=== PATIENT | male | born 1960 | race Caucasian/White ===

== ENCOUNTER → 2018-02-19 10:33 | Outpatient (CLI) | payer MEDICARE, SELFPAY ==
--- NOTE | 2018-02-19 11:02 | MR_ITS ---
MR head/brain wo con HISTORY: ITS.REASON: SLURRED SPEECH, DROOLING, CONFUSION, lightheadedness ORDERING PHYSICIAN: Aleena Hamilton PATIENT AGE: 58 years Comparison: None TECHNIQUE: Standard multiplanar multiecho sequences are performed without contrast. FINDINGS: No midline shift, mass effect, or intracranial hemorrhage is evident. Small area of restricted diffusion with increased T2 signal involves posterior aspect of the body of the caudate nucleus extending inferiorly into the posterior aspect of the putamen consistent with an area of acute lacunar infarction. This is slightly hypointense on the ADC images. In addition, there is a small area of increased diffusion and T2 signal in the right putamen superiorly which is very slightly hyperintense on the ADC images consistent with a subacute area of lacunar infarction. There are old bilateral lacunar infarctions also present along with perivascular dilated spaces. There is mild generalized atrophy. The cerebellopontine angles, cerebellum, and brainstem are unremarkable. Flow void artifact is present within the internal carotids and basilar artery as expected. The pituitary and optic chiasm are unremarkable. No cerebellar ectopia. A lobular soft tissue lesion is present in the left nasal canal posteriorly extending into the nasopharynx measuring 3 cm consistent with a polyp. There is mild mucosal thickening of the paranasal sinuses. IMPRESSION: 1. Acute lacunar infarction of the left basal ganglia. 2. Subacute/early chronic lacunar infarction of the right basal ganglia. 3. Old bilateral basal ganglia lacunar infarctions. 4. Left-sided nasal polyp with mild sinus inflammatory changes
== END ==
PROVIDERS: Family Provider Family Medicine; PCP Family Medicine; Visit Provider Family Medicine
DX: R47.81 Slurred speech (principal); R41.0 Disorientation, unspecified
CPT/HCPCS: 70551

== ENCOUNTER 2022-08-18 01:30 | Observation (INO) | payer MEDICARE, SELFPAY ==
[2022-08-18] VITALS (16 sets, daily range): BP systolic 89–125; BP diastolic 52–80; PULSE 65–102; RESP 18–24; TEMP 36.3–36.8; O2SAT 87–98; BMI 32.3; BMI 29.1; BMI 29.3
--- NOTE | 2022-08-18 01:21 | ECG_ITS ---
APPROVED REPORT Exam: Resting ECG HR:74 bpm ECG Measurements Heart Rate 74 AXES MN 136 P 62 QRSd 118 QRS -7 QT 385 T 71 QTc 412 Conclusion SINUS RHYTHM INDETERMINATE AXIS MODERATE INTRAVENTRICULAR CONDUCTION DELAY [110+ ms QRS DURATION] BORDERLINE ECG UNCONFIRMED REPORT Electronically signed by : Brian Lujan MD 08/18/2022 08:56:21
[2022-08-18 01:26] LABS: ABG Base Excess -2.8 mmol/L (-2.4-2.3); ABG HCO3 21.7 mmhg (22.0-26.0); ABG Oxygen Saturation 95 % (90-100); ABG PH 7.42 mmol/L (7.35-7.45); ABG PO2 69.8 mmhg (80-100); ABG TCO2 22.7 mmhg (23-27); Allen's Test Acceptable; Oxygen 3LPM %
[2022-08-18 01:27] LABS: Source Left Radial
--- NOTE | 2022-08-18 01:37 | XR_ITS ---
PROCEDURE INFORMATION: Exam: XR Chest Exam date and time: 08/18/2022 2:31 AM Age: 62 years old Clinical indication: Condition or disease; Lung condition and disease; Copd and hypoxia; Shortness of breath; Additional info: SOA, hypoxia, copd HX TECHNIQUE: Imaging protocol: Radiologic exam of the chest. Views: 1 view. COMPARISON: No relevant prior studies available. FINDINGS: Lungs: Patchy airspace opacity is noted in the right mid and lower lung. Clear left lung. Pleural spaces: No pleural effusion. No pneumothorax. Heart/Mediastinum: Cardiac silhouette is normal in size for technique. Bones/joints: Age appropriate. IMPRESSION: Patchy opacities in the right lung are compelling for pneumonia.
[2022-08-18 01:45] LABS: Coronavirus 19, PCR Not Detected (NotDetected); Influenza A, PCR Not Detected (NotDetected); Influenza B, PCR Not Detected (NotDetected)
[2022-08-18 01:52] LABS: Alanine Aminotransferase 17 U/L (12-78); Albumin Level 4.3 g/dl (3.5-5.0); Albumin/Globulin Ratio 1.4 (1.1-1.8); Alkaline Phosphatase 83 U/L (38-126); Anion Gap 7.4 mEq/L (5-15); Aspartate Amino Transferase 32 U/L (17-59); Blood Urea Nitrogen 12 mg/dl (9-20); Calcium 9.1 mg/dl (8.4-10.2); Carbon Dioxide 29 mmol/L (22.0-30.0); Chloride 104 mmol/L (98-107); Creatinine Clearance Estimated 98 mL/min (50-200); Estimated Glomerular Filt Rate 86 ml/min (>60); GFR (African American) 103 ML/MIN (>60); Glucose 124 mg/dl (74-100); Potassium 3.4 mmoL/L (3.5-5.1); Sodium 137 mmol/L (136-145); Total Protein,Serum 7.3 g/dl (6.3-8.2)
[2022-08-18 01:53] LABS: Lactic Acid 1.2 mmol/L (0.7-2.1)
[2022-08-18 01:54] LABS: Basophils # 0.3 K/mm3 (0-0.2); Basophils % 1.7 % (0.1-2.0); Eosinophils # 0.5 K/mm3 (0.0-0.4); Hematocrit 52.2 % (42.0-52.0); Hemoglobin 17.2 g/dL (14.1-18.0); Lymphocytes # 2.4 K/mm3 (0.7-4.5); Lymphocytes % 13.5 % (10-50); Mean Corpuscular HGB Conc 32.8 g/dL (31.8-35.4); Mean Corpuscular Hemoglobin 30.1 pg (27.0-31.2); Mean Corpuscular Volume 91.5 fl (80-94); Mean Platelet Volume 7.6 fl (7.4-10.4); Monocytes # 0.5 K/mm3 (0.1-1.0); Monocytes % 2.8 % (1.7-9.3); Neutrophils # 13.8 K/mm3 (1.8-7.8); Platelet Count 399 K/mm3 (142-424); Red Blood Count 5.71 M/mm3 (4.60-6.20); Red Cell Distribution Width 13.7 % (11.5-17.5); White Blood Count 17.4 K/mm3 (4.8-10.8)
[2022-08-18 01:57] LABS: C-Reactive Protein 5.1 mg/L (0-4)
--- NOTE | 2022-08-18 02:01 | HMH.EDSOB ---
Discharge Plan Disposition Chief Complaint: Shortness of Breath/Dyspnea Prescriptions Prescriptions: No Action losartan 50 mg tablet 50 mg PO DAILY Label Comments: TAKE 1 TABLET BY MOUTH ONCE DAILY fluticasone furoate-vilanterol [Breo Ellipta] 200-25 mcg/dose blister with device 1 ea INHALATION DAILY Discharge ED Provider: Michelle (ED)Jim Resp/SOB HPI General Chief Complaint: Shortness of Breath/Dyspnea Stated Complaint: SOA Time Seen by Provider: 08/18/22 02:01 Mode of Arrival: EMS Source of Information: Patient, Relative, EMS and Medical Record Limitations: No Limitations Description of Symptoms (Recalled from ER Triage Doc. by RN): Pt c/o SOB, sinus congestion, and productive cough that began yeserday am (08/17). States he was out of his Breo inhaler and was unable to pick it up yesterday. He did take 2 Sinus pills and took a nap, but after he woke up he really couldn't breathe . EMS gave 1 du-neb in route and transistioned from 100% NRB mask to 3L NC. Pt does not use home O2. History of Present Illness pt with sob and has hx of copd - does use tob and no o2 at home but has low sat at home and in ed - had chest pressure with sob skip - Complaint: shortness of breath and chest pain Onset (ago): hour(s) Severity: moderate Treatment prior to arrival: oxygen and bronchodilator Related Data Home oxygen amount: none Home Medications Medication Instructions Recorded Confirmed fluticasone furoate 200 1 ea inhalation DAILY COPD 08/18/22 08/18/22 mcg-vilanterol 25 mcg/dose inhalation powder (Breo Ellipta) losartan 50 mg tablet 50 mg PO DAILY High blood pressure 08/18/22 08/18/22 Allergies Allergy/AdvReac Type Severity Reaction Status Date / Time No Known Allergies Allergy Verified 08/18/22 01:12 [facility] Disclaimer: The information contained in this section may have been updated after the patient was seen, as this information can be updated by other users. Medical History (Updated 08/18/22 @ 02:29 by Libertad Velazco RN) Asthma COPD (chronic obstructive pulmonary disease) TIA (transient ischemic attack) Surgical History (Updated 08/18/22 @ 02:32 by Libertad Velazco RN) H/O cardiac catheterization Social History Smoking Status: Current every day smoker alcohol intake: never current occupational status: employed Travel in the last 8 weeks: None ROS Obtained: Yes All systems reviewed & no additional complaints except as documented Physical Exam General General appearance: alert Head Head exam: normocephalic Eye Eye exam: Present PERRL and EOMI ENT ENT exam: Present mucous membranes dry Neck Neck exam: Present trachea midline Respiratory Respiratory exam: Present wheezes; Absent respiratory distress Cardiovascular Cardiovascular exam: Present regular rate and systolic murmur Abdominal Exam Abdominal exam: Present soft Extremities Exam Extremities exam: Absent calf tenderness Neurological Exam Neurological exam: Present alert and CN II-XII intact Skin Skin exam: Absent rash Medical Decision Making Medical Records Medical records reviewed: Yes I reviewed the patient's medical records. Brayan Inquiry Pt receiving controlled substance: No Vital Signs: 08/18/22 01:30 08/18/22 02:30 Temperature 98.2 F Temperature Source Oral Pulse Rate 89 Pulse Rate [Right] 102 H Respiratory Rate 24 22 Blood Pressure 98/75 L Blood Pressure [Right Arm] 125/52 L Blood Pressure Mean 82 Blood Pressure Mean [Right Arm] 76 Blood Pressure Source [Right Arm] Automatic Cuff 02 Sat by Pulse Oximetry 87 L 97 Oxygen Delivery Method Room Air Lab Data Lab results reviewed: Yes I reviewed the patient's lab results. Lab Results 08/18/22 01:23: Specimen Source Left radial, O2 % 3lpm, ABG pH 7.42, ABG pCO2 34.0 L, ABG pO2 69.8 L, ABG HCO3 21.7 L, ABG Total CO2 22.7 L, ABG O2 Saturation 95, ABG Base Excess -2.8 L, Isaac Test Acceptable 08/18/22 01:2
[2022-08-18 02:07] LABS: MANUAL DIFFERENTIAL MANUAL DIFFERENTIAL (MANUAL DIFF); NT Pro Brain Natriuretic Pep. 40.1 pg/mL (0-125)
[2022-08-18 02:11] LABS: Procalcitonin 0.056 ng/mL (0.0-2.0)
[2022-08-18 02:12] LABS: Troponin I < 0.01 ng/ml (0.00-0.034)
--- NOTE | 2022-08-18 02:38 | PC.NURSE ---
Hospitalist at bedside
[2022-08-18 02:49] LABS: Erythrocyte Sedimentation Rate 2 mm/hr (0-20)
[2022-08-18 02:57] LABS: Eosinophils % 2 % (0-3); Lymphocytes % 16 % (10-50); Monocytes % 3 % (2-9); Neutrophils % 78 % (42-76); Platelet Estimate Normal; RBC Morphology Normal; Total Cells Counted 100
--- NOTE | 2022-08-18 03:06 | PC.NURSE ---
lab called to check on labs admission orders (CBC timing), called Hospitalist to clarify this and Beronica states it is supposed to be 0600 AM labs.
[2022-08-18 03:08] LABS: Ethyl Alcohol < 10 mg/dl (0-10)
--- NOTE | 2022-08-18 03:10 | EXP.HP ---
History of Present Illness *Admission Date: 08/18/22 *Reason for visit:: Chief complaint: Shortness of breath *History of present illness: This is a 62-year-old male with past medical history of COPD, chronic alcohol abuse, tobacco abuse who presents emergency department today with complaints of shortness of breath. He reports around noon yesterday he was became acutely short of breath with audible wheezing. He reports this shortness of breath worsened over the course of the evening. He was noted to be in the mid 80s on room air upon arrival to the emergency department. He does not wear O2 at home. He does admit to alcohol intake of 6-8 beers daily over the course of the last 20 years. He also admits to 3 packs a day of cigarette smoking. He does endorse use of his Breo inhaler and antihypertensive medicines but states he is not on any other medications. Emergency department work-up significant for moderate wheezing on arrival to the emergency department. He is requiring O2 at this time to maintain oxygen saturation greater than 85%. labs notable for leukocytosis with a white blood cell count of 17, ABG identified no CO2 retention but did identify hypoxemia. COVID swab negative. His respiratory PCR panel identified rhinovirus. Influenza was negative. He received Solu-Medrol and DuoNeb in the emergency department and will be admitted to the hospital service for further evaluation management. [facility] Medical History (Updated 08/18/22 @ 07:25 by Gal Cortez MD) Alcohol use disorder COPD (chronic obstructive pulmonary disease) TIA (transient ischemic attack) Tobacco dependence Surgical History (Updated 08/18/22 @ 02:32 by Libertad Velazco RN) H/O cardiac catheterization Social History (Updated 08/18/22 @ 04:12 by Micheline Bautista RN) Smoking Status: Current every day smoker alcohol intake: current current occupational status: employed Travel in the last 8 weeks: None Review of Systems Review of Systems Review of systems:: pertinent systems reviewed and negative unless documented below Constitutional Constitutional: Reports fever(s) *Respiratory Respiratory: Reports chest congestion, Reports cough, Reports excessive phlegm production and Reports wheezing Allergic/Immunologic Allergic/Immunologic: Reports wheezing Meds Home Medications and Allergies Home Medications Medication Instructions Recorded Confirmed Type fluticasone furoate 200 1 ea inhalation DAILY COPD 02/17/23 02/17/23 History mcg-vilanterol 25 mcg/dose inhalation powder (Breo Ellipta) losartan 50 mg tablet 50 mg PO DAILY High blood pressure 08/18/22 08/18/22 History New Prescriptions to Start Prescriptions: Allergies Allergy/AdvReac Type Severity Reaction Status Date / Time No Known Allergies Allergy Verified 08/18/22 01:12 Exam Data for Last 24 hours Vital signs and Labs for Last 24 Hours: Temp Pulse Resp BP Pulse Ox 98.2 F 89 22 98/75 L 97 08/18/22 01:30 08/18/22 02:30 08/18/22 02:30 08/18/22 02:30 08/18/22 02:30 Laboratory Results - last 24 hr 08/18/22 01:23: Specimen Source Left radial, O2 % 3lpm, ABG pH 7.42, ABG pCO2 34.0 L, ABG pO2 69.8 L, ABG HCO3 21.7 L, ABG Total CO2 22.7 L, ABG O2 Saturation 95, ABG Base Excess -2.8 L, Isaac Test Acceptable 08/18/22 01:23: WBC 17.4 H, RBC 5.71, Hgb 17.2, Hct 52.2 H, MCV 91.5, MCH 30.1, MCHC 32.8, RDW 13.7, Plt Count 399, MPV 7.6, Neut % (Auto) 79.0, Lymph % (Auto) 13.5, [place] % (Auto) 2.8, Eos % (Auto) 3.0, Baso % (Auto) 1.7, Neut # (Auto) 13.8 H, Lymph # (Auto) 2.4, [place] # (Auto) 0.5, Eos # (Auto) 0.5 H, Baso # (Auto) 0.3 H, Total Counted 100, Neutrophils % (Manual) 78 H, Lymphocytes % (Manual) 16, Monocytes % (Manual) 3, Eosinophils % (Manual) 2, Basophils % (Manual) 1.0, Platelet Estimate Normal, RBC Morphology Normal, ESR 2 08/18/22 01:23: Sodium 137, Potassium 3.4 L, Chloride 104, Carbon Dioxide 29, Anion Gap 7.4, BUN 12, Creatinine 0.90, Estimated C
--- NOTE | 2022-08-18 03:13 | PC.NURSE ---
called report to Andie TIDWELL on 2nd floor
[2022-08-18 03:19] LABS: Adenovirus,PCR Not Detected (NotDetected); Bordetella Pertussis Not Detected (NotDetected); Chlamydophila Pneumoniae, PCR Not Detected (NotDetected); Coronavirus 19, PCR Not Detected (NotDetected); Coronavirus 229E Not Detected (NotDetected); Coronavirus NL63 Not Detected (NotDetected); Coronavirus OC43 Not Detected (NotDetected); Coronovirus HKU1,PCR Not Detected (NotDetected); Human Metapneumovirus Not Detected (NotDetected); Influenza A, PCR Not Detected (NotDetected); Influenza AH1, 2009 Not Detected (NotDetected); Influenza AH1, PCR Not Detected (NotDetected); Influenza AH3,PCR Not Detected (NotDetected); Influenza B, PCR Not Detected (NotDetected); Mycoplasma Pneumoniae, PCR Not Detected (NotDetected); Parainfluenza 1, PCR Not Detected (NotDetected); Parainfluenza 2, PCR Not Detected (NotDetected); Parainfluenza 3, PCR Not Detected (NotDetected); Parainfluenza 4, PCR Not Detected (NotDetected); Respiratory Syncytial Virus Not Detected (NotDetected)
--- NOTE | 2022-08-18 03:38 | PC.NURSE ---
Pt arrived to floor via stretcher @ [id number].
[2022-08-18 04:49] LABS: Rhinovirus/Enterovirus Detected (NotDetected)
[2022-08-18 06:04] LABS: Basophils # 0.1 K/mm3 (0-0.2); Basophils % 0.3 % (0.1-2.0); Eosinophils # 0.1 K/mm3 (0.0-0.4); Eosinophils % 0.5 % (0.1-12.0); Hemoglobin 16.4 g/dL (14.1-18.0); Lymphocytes # 0.5 K/mm3 (0.7-4.5); Lymphocytes % 2.8 % (10-50); Mean Corpuscular HGB Conc 31.6 g/dL (31.8-35.4); Mean Corpuscular Hemoglobin 29.5 pg (27.0-31.2); Mean Corpuscular Volume 93.3 fl (80-94); Mean Platelet Volume 7.4 fl (7.4-10.4); Monocytes # 0.1 K/mm3 (0.1-1.0); Monocytes % 0.8 % (1.7-9.3); Neutrophils # 15.1 K/mm3 (1.8-7.8); Neutrophils % 95.5 % (37.0-80.0); Platelet Count 357 K/mm3 (142-424); Red Blood Count 5.57 M/mm3 (4.60-6.20); Red Cell Distribution Width 13.7 % (11.5-17.5); White Blood Count 15.9 K/mm3 (4.8-10.8)
[2022-08-18 06:28] LABS: Troponin I < 0.01 ng/ml (0.00-0.034)
[2022-08-18 06:35] LABS: Chloride 108 mmol/L (98-107); Sodium 139 mmol/L (136-145)
[2022-08-18 06:37] LABS: Blood Urea Nitrogen 13 mg/dl (9-20); Creatinine Clearance Estimated 89 mL/min (50-200); Estimated Glomerular Filt Rate 98 ml/min (>60); GFR (African American) 119 ML/MIN (>60)
[2022-08-18 06:38] LABS: Calcium 8.4 mg/dl (8.4-10.2); Carbon Dioxide 24 mmol/L (22.0-30.0); Cholesterol 152 mg/dl (140-200); Glucose 234 mg/dl (74-100); Phosphorous 2.5 mg/dl (2.5-4.5); Triglycerides 51 mg/dl (30-150); VLDL Cholesterol 10 mg/dL (0-40)
[2022-08-18 06:39] LABS: Chol/HDL Ratio 3.1 (1-3.5); HDL Cholesterol 49 mg/dl (40-60); Magnesium 1.9 mg/dl (1.6-2.3)
[2022-08-18 06:49] LABS: Direct LDL Cholesterol 87.59 mg/dL (100-129)
--- NOTE | 2022-08-18 07:23 | HMH.PHAINT1 ---
Pharmacy Intervention Comments: verified home med list using list from outpatient pharmacy
[2022-08-18 08:45] LABS: Troponin I < 0.01 ng/ml (0.00-0.034)
[2022-08-18 08:53] LABS: Microscopic, Urine URINE MICROSCOPIC (MICROSCOPIC)
[2022-08-18 08:55] LABS: Appearance,Urine CLEAR (Clear); Blood, Urine TRACE-I (Negative); Color,Urine YELLOW (Yellow); Glucose,Urine (UA) Negative (Negative); Ketones,Urine TRACE (Negative); Leukocyte Esterase,Urine 1+ (Negative); Nitrate,Urine POSITIVE (Negative); PH,Urine 5.5 (5.0-8.5); Protein,Urine Negative (Negative); Urobilinogen,Urine 0.2 EU/dl (0.2)
[2022-08-18 08:59] LABS: Bilirubin,Urine Negative (Negative)
--- NOTE | 2022-08-18 09:06 | PC.NURSE ---
tech note; notified nurse of low blood pressure for 0800 vital signs.
[2022-08-18 09:13] LABS: Bacteria,Urine 1+ /lpf
--- NOTE | 2022-08-18 12:47 | CT_ITS ---
FINAL REPORT TECHNIQUE: Thin section axial images were obtained from the lung apices through the upper abdomen without contrast. This study was performed with techniques to keep radiation doses as low as reasonably achievable (ALARA). Individualized dose reduction techniques using automated exposure control or adjustment of mA and/or kV according to the patient's size were employed. CLINICAL HISTORY: questionable pneumonia with COPD FINDINGS: There is no mediastinal, hilar, or axillary lymphadenopathy. There is no pleural or pericardial effusion. There is left greater than right lower lobe atelectasis. There is evidence of old granulomatous disease. Limited, unenhanced evaluation of the upper abdomen is without acute abnormality. There is no acute osseous abnormality. IMPRESSION: No acute intrathoracic abnormality. Lower lobe atelectasis. Reviewed, Interpreted and Dictated by Hailey Godoy MD Transcribed by Priscila Restrepo Authenticated and [facility]
--- NOTE | 2022-08-18 20:02 | PC.NURSE ---
Pt. states he will call out if he needs to use the restroom and not his urinal.
[2022-08-19] VITALS (11 sets, daily range): BP systolic 99–138; BP diastolic 72–94; PULSE 60–110; RESP 20–24; TEMP 36.4–37.1; O2SAT 92–100; BMI 29.4; BMI 29.5
--- NOTE | 2022-08-19 06:05 | PC.NURSE ---
No acute changes noted during the night.
[2022-08-19 09:21] LABS: Basophils # 0.1 K/mm3 (0-0.2); Basophils % 0.3 % (0.1-2.0); Eosinophils # 0.1 K/mm3 (0.0-0.4); Eosinophils % 0.6 % (0.1-12.0); Hematocrit 51.3 % (42.0-52.0); Hemoglobin 16.3 g/dL (14.1-18.0); Lymphocytes # 1.1 K/mm3 (0.7-4.5); Lymphocytes % 4.9 % (10-50); Mean Corpuscular HGB Conc 31.9 g/dL (31.8-35.4); Mean Corpuscular Hemoglobin 29.6 pg (27.0-31.2); Mean Corpuscular Volume 92.9 fl (80-94); Mean Platelet Volume 7.7 fl (7.4-10.4); Monocytes # 0.7 K/mm3 (0.1-1.0); Neutrophils % 91.3 % (37.0-80.0); Platelet Count 363 K/mm3 (142-424); Red Blood Count 5.52 M/mm3 (4.60-6.20); Red Cell Distribution Width 13.6 % (11.5-17.5)
[2022-08-19 09:28] LABS: MANUAL DIFFERENTIAL MANUAL DIFFERENTIAL (MANUAL DIFF)
[2022-08-19 09:29] LABS: Chloride 110 mmol/L (98-107)
[2022-08-19 09:30] LABS: Sodium 142 mmol/L (136-145)
[2022-08-19 09:33] LABS: Blood Urea Nitrogen 20 mg/dl (9-20); Carbon Dioxide 25 mmol/L (22.0-30.0); Creatinine Clearance Estimated 90 mL/min (50-200); Estimated Glomerular Filt Rate 98 ml/min (>60); GFR (African American) 119 ML/MIN (>60); Glucose 158 mg/dl (74-100)
[2022-08-19 09:56] LABS: Lymphocytes % 8 % (10-50); Monocytes % 2 % (2-9); Neutrophils % 90 % (42-76); RBC Morphology Normal; Total Cells Counted 100
[2022-08-19 09:57] LABS: Platelet Estimate Normal
[2022-08-19 10:04] LABS: Procalcitonin 0.067 ng/mL (0.0-2.0)
--- NOTE | 2022-08-19 12:12 | PC.NURSE ---
tech note; notified nurse of high blood pressure for 1200 vital signs.
--- NOTE | 2022-08-19 12:35 | EXP.ACUTE.PN ---
Subjective *Date: 08/19/22 *Time: 12:35 Interval history: Patient states he is breathing little better today, cough is more productive of clear sputum. Seeing more movement of sputum with breathing treatments. Still requiring 2 L nasal cannula oxygen. No nausea or vomiting overnight. Denies any chest pain. Hemodynamically stable. Medical Exam Vital signs and Labs for Last 24 Hours: Vital Signs Temp Pulse Pulse Resp BP Pulse Ox 08/19/22 12:00 98.0 F 94 H 22 128/94 H 95 08/19/22 08:00 83 08/19/22 08:00 97.5 F L 65 22 115/77 95 08/19/22 06:00 72 08/19/22 06:00 74 08/19/22 06:00 92 L 08/19/22 04:00 97.7 F 79 22 111/78 93 L 08/19/22 04:00 60 08/19/22 00:00 90 08/18/22 23:36 97.4 F L 87 22 109/80 L 96 08/18/22 20:00 100 H 08/18/22 23:11 84 08/18/22 23:11 85 08/18/22 20:00 98.1 F 77 22 120/74 95 08/18/22 19:56 95 08/18/22 18:12 94 H 08/18/22 18:12 94 H 08/18/22 18:12 95 08/18/22 16:00 97.8 F 92 H 20 104/74 L 95 08/18/22 16:28 98 H Intake and Output 08/18/22 08/19/22 08/19/22 23:59 07:59 15:59 Intake Total 720 / 1440 120 / 120 Output Total 450 / 750 150 / 400 250 / 400 Balance 270 / 690 -150 / -280 -130 / -280 Intake: Intake, Oral Amount 720 / 1440 120 / 120 Output: Output, Urine Amount 450 / 750 150 / 400 250 / 400 Other: Weight 83.098 kg 83.206 kg Patient Weight 08/19/22 23:59 Weight 83.206 kg Laboratory Results - last 24 hr 08/18/22 01:37: Urine Color Yellow, Urine Appearance Clear, Urine pH 5.5, Ur Specific [place] 1.020, Urine Protein Negative, Urine Glucose (UA) Negative, Urine Ketones Trace, Urine Blood Trace-i, Urine Nitrate Positive, Urine Bilirubin Negative, Urine Urobilinogen 0.2, Ur Leukocyte Esterase 1+ A, Urine RBC 3-5, Urine WBC 5-10, Ur Squamous Epith Cells 3-5, Urine Bacteria 1+ 08/19/22 09:05: WBC 23.0 H* D, RBC 5.52, Hgb 16.3, Hct 51.3, MCV 92.9, MCH 29.6, MCHC 31.9, RDW 13.6, Plt Count 363, MPV 7.7, Neut % (Auto) 91.3 H, Lymph % (Auto) 4.9 L, [place] % (Auto) 3.0, Eos % (Auto) 0.6, Baso % (Auto) 0.3, Neut # (Auto) 21.0 H, Lymph # (Auto) 1.1, [place] # (Auto) 0.7, Eos # (Auto) 0.1, Baso # (Auto) 0.1, Total Counted 100, Neutrophils % (Manual) 90 H, Lymphocytes % (Manual) 8 L, Monocytes % (Manual) 2, Platelet Estimate Normal, RBC Morphology Normal 08/19/22 09:05: Sodium 142, Potassium 4.0, Chloride 110 H, Carbon Dioxide 25, Anion Gap 11.0, BUN 20 D, Creatinine 0.80, Estimated Creat Clear 90, Estimated GFR 98, Est GFR ( Amer) 119, Glucose 158 H, Calcium 9.0, Procalcitonin 0.067 I & O for Labs for Last 24 Hours: Intake & Output 08/16/22 08/17/22 08/18/22 08/19/22 23:59 23:59 23:59 23:59 Intake Total 1440 / 1440 120 / 120 Output Total 750 / 750 400 / 400 Balance 690 / 690 -280 / -280 Weight 82.9 kg 83.206 kg Microbiology Reports for the Last 24 Hours: Microbiology 08/18/22 11:30 Sputum - Expectorated Sputum Gram Stain - Final 08/18/22 08:39 Urine,Clean Catch Urine Culture - Preliminary Gram Negative Rods Constitutional: Present no acute distress, chronically ill appearing and cooperative Head: Present atraumatic and normocephalic ENT: Present normal exam Neck: Present normal inspection Respiratory: Present accessory muscle use, rhonchi, wheezes, crackles and diminished air movement Cardiac: Present Reg Rate and Rhythm GI: Present normal bowel sounds; Absent tenderness Extremities: Present normal inspection and full ROM Skin: Present intact; Absent erythema Neuro: Present Cranial Nerve 2-12 Intact, Grossly Intact, alert, awake, oriented x 3 and moves all extremities Assessment and Plan *Assessment and plan (1) Pneumonia: Status: Acute Qualifiers: Pneumonia type: due to unspecified organism Category: Medical Code(s): J18.9 - Pneumonia, unspecified organis
--- NOTE | 2022-08-19 17:53 | PC.NURSE ---
pt on o2 2l, tolerating well, pt has audible ins and exp wheezing/rhonchi. pt got up to chair for around 3 hrs today and took a bath. pt back in bed with no c/o at this time. cb within reach.
[2022-08-20] VITALS: PULSE 111
[2022-08-20 00:19] VITALS: PULSE 79; PULSE 80
[2022-08-20 04:00] VITALS: BP 92/67; PULSE 102; PULSE 110; RESP 22; TEMP 36.7; O2SAT 97; BMI 29.5
--- NOTE | 2022-08-20 04:36 | PC.NURSE ---
Pt. is on o2 2L NC and up with assist times one. He asked for something to help him sleep last night and got some melatonin. Said it didn't really help too much.
[2022-08-20 06:17] VITALS: PULSE 93; PULSE 95; O2SAT 96
--- NOTE | 2022-08-20 07:20 | EXP.DC.SUM ---
General Admission date:: 08/18/22 Discharge date: 08/20/22 HPI HPI HPI: This is a 62-year-old male with past medical history of COPD, chronic alcohol abuse, tobacco abuse who presents emergency department today with complaints of shortness of breath. He reports around noon yesterday he was became acutely short of breath with audible wheezing. He reports this shortness of breath worsened over the course of the evening. He was noted to be in the mid 80s on room air upon arrival to the emergency department. He does not wear O2 at home. He does admit to alcohol intake of 6-8 beers daily over the course of the last 20 years. He also admits to 3 packs a day of cigarette smoking. He does endorse use of his Breo inhaler and antihypertensive medicines but states he is not on any other medications. Emergency department work-up significant for moderate wheezing on arrival to the emergency department. He is requiring O2 at this time to maintain oxygen saturation greater than 85%. labs notable for leukocytosis with a white blood cell count of 17, ABG identified no CO2 retention but did identify hypoxemia. COVID swab negative. His respiratory PCR panel identified rhinovirus. Influenza was negative. He received Solu-Medrol and DuoNeb in the emergency department and will be admitted to the hospital service for further evaluation management. Hospital Course Hospital Course Hospital Course: The patient is a 62-year-old male with chronic history of tobacco dependence and alcohol use disorder.? In the ED he was found to be hypoxic and required oxygen supplementation.? Admitted for his acute on chronic hypoxic respiratory failure.? Able to wean oxygen during admission. Room air saturation of 90 to 93% on day of discharge. Problems addressed are as follows: Sepsis, present on admission (tachycardia, elevated white cell count, suspected source from respiratory versus UTI) Pneumonia Acute on chronic hypoxemic respiratory failure Urinary tract infection Admitted for sepsis and pneumonia. Respiratory panel showed positive for rhinovirus. Urine culture however grew gram-negative rods. Transitioned to Levaquin during admission to treat UTI. Symptoms defervesced. Plan to complete 7-day course of levofloxacin orally. Initiated on prednisone 40 mg for COPD exacerbation secondary to viral source. Complete 5 days total. Continue breathing treatments every 6 hours. Transition to Combivent as patient does not have a nebulizer at home. No oxygen requirement at discharge. Stable for discharge home. Continue aggressive pulmonary toilet. Alcohol use disorder moderate dependence Alcohol consumption 6-8 beers a day between 3 PM and 6 PM in the evening. No withdrawal symptoms during admission. Treated with scheduled oxazepam and gabapentin. Discontinue at discharge. Received multivitamin therapy, folic acid, thiamine replacement. Discussed benefits of cessation. Recommend further discussion as an outpatient for counseling and possible abstinence/cessation Hypertension Stable during admission, continue losartan at discharge. Tobacco dependence Tobacco cessation education, Nicotine replacement therapy Medically stable for discharge home. Significant improvement in symptoms. Stable on room air and tolerating oral intake along with oral antibiotics. Exam Data for Last 24 hours Vital signs and Labs for Last 24 Hours: Temp Pulse Resp BP Pulse Ox FiO2 98.1 F 95 H 22 92/67 L 96 28 08/20/22 04:00 08/20/22 06:17 08/20/22 04:00 08/20/22 04:00 08/20/22 06:17 08/19/22 18:54 Laboratory Results - last 24 hr 08/19/22 09:05: WBC 23.0 H* D, RBC 5.52, Hgb 16.3, Hct 51.3, MCV 92.9, MCH 29.6, MCHC 31.9, RDW 13.6, Plt Count 363, MPV 7.7, Neut % (Auto) 91.3 H, Lymph % (Auto) 4.9 L, [place] % (Auto) 3.0, Eos % (Auto) 0.6, Baso % (Auto) 0.3, Neut # (Auto) 21.0 H, Lymph # (Auto) 1.1, [place] # (Auto) 0.7, Eos # (Auto) 0.1, Baso # (Auto) 0.1, Total Counted 100, N
[2022-08-20 08:00] VITALS: BP 132/81; PULSE 102; PULSE 110; RESP 22; TEMP 36.8; O2SAT 92
[2022-08-20 08:07] VITALS: O2SAT 90
[2022-08-20 08:55] LABS: Basophils # 0.1 K/mm3 (0-0.2); Basophils % 0.6 % (0.1-2.0); Eosinophils # 0.2 K/mm3 (0.0-0.4); Eosinophils % 0.9 % (0.1-12.0); Hematocrit 48.4 % (42.0-52.0); Hemoglobin 15.7 g/dL (14.1-18.0); Lymphocytes # 2.1 K/mm3 (0.7-4.5); Lymphocytes % 11.6 % (10-50); Mean Corpuscular HGB Conc 32.5 g/dL (31.8-35.4); Mean Corpuscular Hemoglobin 29.9 pg (27.0-31.2); Mean Corpuscular Volume 92.1 fl (80-94); Mean Platelet Volume 7.5 fl (7.4-10.4); Monocytes # 0.7 K/mm3 (0.1-1.0); Monocytes % 3.9 % (1.7-9.3); Neutrophils # 15.1 K/mm3 (1.8-7.8); Platelet Count 363 K/mm3 (142-424); Red Blood Count 5.25 M/mm3 (4.60-6.20); Red Cell Distribution Width 13.7 % (11.5-17.5); White Blood Count 18.1 K/mm3 (4.8-10.8)
[2022-08-20 09:04] LABS: Chloride 111 mmol/L (98-107); MANUAL DIFFERENTIAL MANUAL DIFFERENTIAL (MANUAL DIFF); Potassium 3.7 mmoL/L (3.5-5.1); Sodium 142 mmol/L (136-145)
[2022-08-20 09:06] LABS: Blood Urea Nitrogen 24 mg/dl (9-20); Creatinine Clearance Estimated 90 mL/min (50-200); Estimated Glomerular Filt Rate 76 ml/min (>60); GFR (African American) 92 ML/MIN (>60)
[2022-08-20 09:07] LABS: Alanine Aminotransferase 15 U/L (12-78); Albumin Level 3.6 g/dl (3.5-5.0); Albumin/Globulin Ratio 1.3 (1.1-1.8); Alkaline Phosphatase 59 U/L (38-126); Anion Gap 7.7 mEq/L (5-15); Aspartate Amino Transferase 26 U/L (17-59); Bilirubin,Total 0.3 mg/dl (0.2-1.3); Calcium 8.8 mg/dl (8.4-10.2); Carbon Dioxide 27 mmol/L (22.0-30.0); Globulin 2.7 g/dL (1.3-3.2); Glucose 95 mg/dl (74-100); Total Protein,Serum 6.3 g/dl (6.3-8.2)
--- NOTE | 2022-08-20 09:20 | PC.NURSE ---
dc instructions went over with pt and . waiting on pts ride.
[2022-08-20 10:46] LABS: Lymphocytes % 13 % (10-50); Monocytes % 4 % (2-9); Neutrophils % 83 % (42-76); Platelet Estimate Normal; RBC Morphology Normal; Total Cells Counted 100
--- NOTE | 2022-08-22 13:54 | CARE MANAGER ---
Attempted to contact patient x2 related to hospital discharge. BENTLEY left. DIANN Ramírez
== END 2022-08-20 10:30 | disposition home or self-care (01) ==
LOC: ER 01:37 → 2ND 08:06
PROVIDERS: Internal Medicine Adolescent Medicine; Nurse Practitioner Acute Care; Admitting Provider Family Medicine; Emergency Provider Emergency Medicine; PCP Family Medicine; Visit Provider Family Medicine
DX: J18.9 Pneumonia, unspecified organism (principal); I10 Essential (primary) hypertension; F10.10 Alcohol abuse, uncomplicated; F17.210 Nicotine dependence, cigarettes, uncomplicated; Z79.899 Other long term (current) drug therapy; J96.11 Chronic respiratory failure with hypoxia; R06.9 Unspecified abnormalities of breathing; Z20.822 Contact with and (suspected) exposure to COVID-19
CPT/HCPCS: G0378; 36415; 71045; 71250; 80048; 80053; 80061; 81001; 82803; 83605; 83735; 83880; 84100; 84145; 84484; 85007; 85025; 85651; 86140; 87040; 87070; 87086; 87088; 87186; 87205; 87581; 87632; 87798; 93005; 94640; 99285; C9803; U0003; U0005

== ENCOUNTER 2025-03-25 21:43 | Emergency (ER) | payer MEDICARE, SELFPAY ==
--- NOTE | 2025-03-25 21:21 | CT_ITS ---
PROCEDURE INFORMATION: Exam: CTA Neck With Contrast Exam date and time: 03/25/2025 9:36 PM Age: 65 years old Clinical indication: Stroke-like symptoms; Altered mental status/memory loss; Additional info: Possible stroke TECHNIQUE: Imaging protocol: Computed tomographic angiography of the neck with contrast. Exam focused on the cervical segments of the vasculature. 3D rendering (Not supervised by radiologist): MIP and/or 3D reconstructed images were created by the technologist. Radiation optimization: All CT scans at this facility use at least one of these dose optimization techniques: automated exposure control; mA and/or kV adjustment per patient size (includes targeted exams where dose is matched to clinical indication); or iterative reconstruction. Contrast material: ISOVUE; Contrast volume: 80 ml; Contrast route: INTRAVENOUS (IV); COMPARISON: CT HEAD/BRAIN WO CON 03/25/2025 9:34 PM FINDINGS: Limitations: The study is mildly motion degraded. Right common carotid artery: The right common carotid artery is widely patent. No stenosis. Right internal carotid artery: Atherosclerotic changes proximal right internal carotid artery are seen without significant stenosis. Right external carotid artery: Right external carotid artery has no visible occlusion. Left common carotid artery: The left common carotid artery is widely patent. No stenosis. Left internal carotid artery: Atherosclerotic changes proximal left internal carotid artery are seen without significant stenosis. Left external carotid artery: Left external carotid artery has no visible occlusion. Right vertebral artery: Right vertebral artery is patent. No significant stenosis. No evidence of dissection. Left vertebral artery: Left vertebral artery is patent. No significant stenosis. No evidence of dissection. Teeth: Dental disease. Soft tissues: Soft tissues are unremarkable as visualized. Bones/joints: Degenerative bony changes. Lungs: Visualized portions of the lung apices are unremarkable. Other findings: Visualized mediastinal vasculature patent. There is transient retropharyngeal course of both internal carotid artery is present bilaterally. IMPRESSION: No occlusion or significant stenosis. REFERENCES: NASCET CRITERIA. The degree of stenosis in the cervical segment of the internal carotid artery is based on NASCET criteria. Normal is no stenosis. Mild is less than 50% stenosis. Moderate is 50-69% stenosis. Severe is 70% to 99% stenosis. Total occlusion is no detectable patent lumen.
--- NOTE | 2025-03-25 21:21 | CT_ITS ---
PROCEDURE INFORMATION: Exam: CTA Head With Contrast, Arteriography Exam date and time: 03/25/2025 9:36 PM Age: 65 years old Clinical indication: Stroke-like symptoms; Altered mental status/memory loss; Additional info: Possible stroke TECHNIQUE: Imaging protocol: Computed tomographic angiography of the head with contrast. Exam focused on the arteries. Computed tomographic angiography of the head with contrast. Exam focused on the arteries. AI vessel analysis not performed. 3D rendering (Not supervised by radiologist): MIP and/or 3D reconstructed images were created by the technologist. Radiation optimization: All CT scans at this facility use at least one of these dose optimization techniques: automated exposure control; mA and/or kV adjustment per patient size (includes targeted exams where dose is matched to clinical indication); or iterative reconstruction. Contrast material: ISOVUE; Contrast volume: 80 ml; Contrast route: INTRAVENOUS (IV); COMPARISON: CT HEAD/BRAIN WO CON 03/25/2025 9:34 PM FINDINGS: ANTERIOR CIRCULATION: Right internal carotid artery: Atherosclerotic changes right internal carotid artery with mild stenosis. Right middle cerebral artery: Right middle cerebral artery is patent. No significant stenosis. No aneurysm. Right anterior cerebral artery: Right anterior cerebral artery is patent. No significant stenosis. No aneurysm. Anterior communicating artery: No anterior communicating artery aneurysm seen. Left internal carotid artery: Atherosclerotic changes left internal carotid artery with mild stenosis. Left middle cerebral artery: Left middle cerebral artery is patent. No significant stenosis. No aneurysm. Left anterior cerebral artery: Left anterior cerebral artery is patent. No significant stenosis. No aneurysm. POSTERIOR CIRCULATION: Right vertebral artery: Right vertebral artery is patent. No significant stenosis. No aneurysm. Left vertebral artery: Left vertebral artery is patent. No significant stenosis. No aneurysm. Basilar artery: The basilar artery is patent. No significant stenosis. No aneurysm. Right posterior cerebral artery: There is mild stenosis of the right [employer] J[employer]NEY[employer] proximally. No occlusion. Left posterior cerebral artery: Left posterior cerebral artery is patent. No significant stenosis. No aneurysm. Veins: Visualized dural venous sinuses grossly patent on this study optimized for arterial assessment. Brain: There is no definite mass, mass effect, or midline shift present. No definite vascular malformation identified. Cerebral ventricles: No significant ventriculomegaly. Bones/joints: No acute osseous abnormality. Soft tissues: Soft tissues are unremarkable as visualized. IMPRESSION: No acute large vessel occlusion identified.
--- NOTE | 2025-03-25 21:21 | CT_ITS ---
PROCEDURE INFORMATION: Exam: CT Head Without Contrast Exam date and time: 03/25/2025 9:34 PM Age: 65 years old Clinical indication: Stroke-like symptoms; Altered mental status/memory loss; Additional info: Possible stroke TECHNIQUE: Imaging protocol: Computed tomography of the head without contrast. Radiation optimization: All CT scans at this facility use at least one of these dose optimization techniques: automated exposure control; mA and/or kV adjustment per patient size (includes targeted exams where dose is matched to clinical indication); or iterative reconstruction. Other technique: STROKE PROTOCOL was implemented. COMPARISON: No relevant prior studies available. FINDINGS: Brain: Multiple bilateral chronic basal ganglia region lacunar type infarcts. No acute infarct. No hemorrhage. Involutional changes of the brain, commensurate with age. No midline shift. Cerebral ventricles: No significant ventriculomegaly. Paranasal sinuses: Scattered paranasal sinus mucosal thickening, without air-fluid level present. Mastoid air cells: Mastoid air cells are well-aerated. Orbital cavities: Visualized portions of the orbits are unremarkable. Bones: No acute osseous abnormality. Soft tissues: Soft tissues are unremarkable as visualized. IMPRESSION: No acute intracranial abnormality. ASSESSMENT: ASPECTS ([place] Stroke Program Early CT Score) is 10.
--- NOTE | 2025-03-25 21:21 | ECG_ITS ---
APPROVED REPORT Exam: Resting ECG HR:82 bpm ECG Measurements Heart Rate 82 AXES MS 162 P 59 QRSd 105 QRS 2 QT 396 T 66 QTc 435 Conclusion SINUS RHYTHM NORMAL ECG UNCONFIRMED REPORT Electronically signed by : CORNEL FOSTER, 03/27/2025 03:56:44
[2025-03-25] MEDS: 0.9 % SODIUM CHLORIDE 50 ML VIAL IV ×2 (21:33→22:28)
[2025-03-25] MEDS: IOPAMIDOL-370 (76%);100ML BOTTLE 80 ML IV ×2 (21:33→22:28)
[2025-03-25] MEDS: SODIUM CHLORIDE 0.9% 10ML SYR (RAD ONLY) 10 ML IV ×2 (21:33→22:28)
[2025-03-25 21:35] LABS: Hematocrit 49.5 % (42.0-52.0); Hemoglobin 16.2 g/dL (14.1-18.0); Immature Granulocytes % 0.5 %; Mean Corpuscular HGB Conc 32.7 g/dL (31.8-35.4); Mean Corpuscular Hemoglobin 29.2 pg (27.0-31.2); Mean Corpuscular Volume 89.2 fl (80-94); Nucleated Red Blood Cells % 0 %; Platelet Count 438 K/mm3 (142-424); Red Blood Count 5.55 M/mm3 (4.60-6.20); Red Cell Distribution Width-SD 42.5 fL; White Blood Count 15.1 K/mm3 (4.8-10.8)
[2025-03-25 21:43] LABS: Albumin Level 4.9 g/dl (3.5-5.0); Chloride 99 mmol/L (98-107); Potassium 4.4 mmoL/L (3.5-5.1); Sodium 136 mmol/L (136-145)
[2025-03-25 21:46] LABS: Alanine Aminotransferase 15 U/L (12-78); Albumin/Globulin Ratio 1.3 (1.1-1.8); Alkaline Phosphatase 75 U/L (38-126); Anion Gap 16.4 mEq/L (5-15); Aspartate Amino Transferase 39 U/L (17-59); Bilirubin,Total 1.1 mg/dl (0.2-1.3); Blood Urea Nitrogen 21 mg/dl (9-20); Calcium 9.5 mg/dl (8.4-10.2); Carbon Dioxide 25 mmol/L (22.0-30.0); Cholesterol 168 mg/dl (140-200); Creatinine,Serum 0.80 mg/dl (0.66-1.25); Estimated Glomerular Filt Rate 97 ml/min (>60); GFR (African American) 117 ML/MIN (>60); Globulin 3.7 g/dL (1.3-3.2); Glucose 107 mg/dl (74-100); HDL Cholesterol 65 mg/dl (40-60); Total Protein,Serum 8.6 g/dl (6.3-8.2); Triglycerides 85 mg/dl (30-150)
--- NOTE | 2025-03-25 21:49 | CT_ITS ---
PROCEDURE INFORMATION: Exam: CT Abdomen And Pelvis With Contrast Exam date and time: 03/25/2025 10:30 PM Age: 65 years old Clinical indication: Other: Abdominal pain and vomiting TECHNIQUE: Imaging protocol: Computed tomography of the abdomen and pelvis with contrast. 3D rendering (Not supervised by radiologist): MIP and/or 3D reconstructed images were created by the technologist. Radiation optimization: All CT scans at this facility use at least one of these dose optimization techniques: automated exposure control; mA and/or kV adjustment per patient size (includes targeted exams where dose is matched to clinical indication); or iterative reconstruction. Contrast material: ISOVUE; Contrast volume: 80 ml; Contrast route: IV; COMPARISON: CT CHEST WO CON 08/18/2022 12:59 PM FINDINGS: Lungs: Patchy regions of lower lobe atelectasis again present. Liver: No liver mass. Patent portal vasculature. Gallbladder and biliary ducts: The gallbladder is unremarkable. No biliary ductal dilatation. Pancreas: The pancreas is unremarkable. Spleen: The spleen is unremarkable. Adrenal glands: The adrenal glands are unremarkable. Kidneys and ureters: There are multiple right renal cysts largest in the posterior lower pole measures 2.1 cm. No hydronephrosis. Subcentimeter hypodensities left kidney too small to characterize likely cysts. 2.5 cm right peripelvic renal cysts. Stomach and bowel: The colon has scattered noninflamed diverticuli. There is wall thickening in the proximal/mid colon with fatty infiltration of the submucosa most likely chronic. There is also fatty infiltration and thickening in the terminal ileum. No bowel obstruction seen. Appendix: The appendix is normal as seen on coronal image 40. Intraperitoneal space: No free air. No significant ascites. Retroperitoneal space: Visualized retroperitoneal structures grossly negative with no obvious hematoma identified. Vasculature: The aorta has atherosclerosis present without aneurysm or visible dissection. The visualized IVC is unremarkable. The right femoral vein has a focal caliber change on series 4, image 117. Lymph nodes: No pathologic lymphadenopathy identified. Urinary bladder: There is contrast in the bladder from CTA earlier same day. The bladder has numerous diverticuli with trabeculated appearance. Reproductive: The prostate gland has central calcifications. Bones/joints: Degenerative bony changes. Soft tissues: Soft tissues are unremarkable as visualized. IMPRESSION: 1. Trabeculated bladder. Correlate for chronic cystitis versus outlet obstruction. 2. Focal caliber change in the right femoral vein suspicious for possible deep venous thrombus. A ultrasound is recommended for follow-up. 3. Chronic colitis changes proximally. No bowel obstruction. COMMENTS: Consistent with the [employer]'s Incidental Findings Committee white paper (J Am Viviana Radiol 2018): Any incidental renal lesion less than 1 cm or classified as too small to characterize, or any incidental cystic renal lesion characterized as simple-appearing, is likely benign. No follow-up imaging is recommended for these lesions per consensus recommendations based on imaging criteria.
--- NOTE | 2025-03-25 21:49 | CT_ITS ---
PROCEDURE INFORMATION: Exam: CTA Chest With Contrast Exam date and time: 03/25/2025 10:30 PM Age: 65 years old Clinical indication: Other: Hypoxia, stroke TECHNIQUE: Imaging protocol: Computed tomographic angiography of the chest with contrast. Exam focused on the arteries. 3D rendering (Not supervised by radiologist): MIP and/or 3D reconstructed images were created by the technologist. Radiation optimization: All CT scans at this facility use at least one of these dose optimization techniques: automated exposure control; mA and/or kV adjustment per patient size (includes targeted exams where dose is matched to clinical indication); or iterative reconstruction. Contrast material: ISO 370; Contrast volume: 80 ml; Contrast route: INTRAVENOUS (IV); COMPARISON: CT CHEST WO CON 08/18/2022 12:59 PM FINDINGS: Pulmonary arteries: There is no central pulmonary embolus. Peripheral PE assessment limited due to mixing artifact. No definite peripheral PE is seen. Aorta: The aorta has mild atherosclerosis. No aneurysm or dissection seen. Thyroid: Normal visualized thyroid gland. Trachea: Centrally the trachea is patent. Lungs: There is lower lobe bronchial wall thickening with left lower lobe distal bronchial mucoid impaction. There is minimal atelectasis in the lower lobes and lingula. No focal pneumonia. Right middle lobe calcified granuloma. Pleural spaces: No significant pleural effusion. No pneumothorax. Heart: No cardiomegaly. No pericardial effusion. Lymph nodes: No pathologic lymphadenopathy identified. Stomach: Visualized upper abdominal structures grossly negative. Bones/joints: No acute osseous abnormality. Soft tissues: Soft tissues are unremarkable as visualized. IMPRESSION: No pulmonary embolus identified. There is lower lobe bronchial wall thickening with mucoid impaction suggesting bronchitis. Patchy regions of basilar atelectasis.
[2025-03-25 21:58] VITALS: BP 135/87; PULSE 77; RESP 19; TEMP 36.9; O2SAT 98; BMI 26.6
[2025-03-25 22:00] VITALS: BP 135/87; PULSE 74; RESP 19; O2SAT 97
[2025-03-25 22:06] LABS: Troponin I < 0.01 ng/ml (0.00-0.034)
[2025-03-25] MEDS: ONDANSETRON 4MG/2ML VIAL 4 MG IV (22:10)
[2025-03-25 22:14] LABS: Activated Partial Thrombo Time 26.2 seconds (22.8-30.6); INR 1.00 (0.9-1.1); Prothrombin Time 11.1 seconds (10.1-12.5)
[2025-03-25 22:21] LABS: Microscopic, Urine URINE MICROSCOPIC (MICROSCOPIC)
--- NOTE | 2025-03-25 22:35 | [facility].EDGENADL ---
Discharge Plan Disposition Chief Complaint: Neuro Symptoms/Deficit Prescriptions Prescriptions: No Action fluticasone furoate-vilanterol [Breo Ellipta] 200-25 mcg/dose blister with device 1 ea INHALATION DAILY prednisone 20 mg Tablet 40 mg PO DAILY 3 Days Qty: 6 0RF losartan 50 mg tablet 25 mg PO DAILY 30 Days Qty: 0 0RF Patient Comments: TAKE 1 TABLET BY MOUTH ONCE DAILY levofloxacin 750 mg Tablet 750 mg PO 1100 5 Days Qty: 5 0RF Combivent Respimat 20-100 mcg/actuation Mist 2 puff inhalation QIDRT 30 Days Qty: 0 0RF Referrals Follow up/Referrals: Nydia Bae APRN [Primary Care Provider, Medical] - See instructions Stand Alone Forms Stand Alone Forms: Transfer Record - ED Print Language Print Language: Hungarian Discharge ED Provider: Michelle Yun General Adult HPI General Chief complaint: Neuro Symptoms/Deficit Stated complaint: Stoke alert Time Seen by Provider: 03/25/25 21:52 Mode of Arrival: EMS Source of Information: EMS Description of Symptoms (Recalled from ER Triage Doc. by RN): pt to ED via [facility] for AMS. Stroke alert activated in field by EMS. NIH 4 upon arrival. FS 142. Pt does report drinking 3 beers earlier today. No known blood thinners. Last known normal 2pm. Family reported to EMS that pt was complaining of left sided headache most of the day today. Pt reports abd pain. pt received 4mg zofran IV from EMS. History of Present Illness HPI narrative: Patient is a 65-year-old gentleman with no significant past medical history who presented to the emergency department as a stroke alert from scene. Per EMS, patient had 2 episodes where his speech was normal but he was saying inappropriate words. They thought that it was likely his blood sugar but that happened a second time. EMS stated that the patient had a headache today and had 1 episode of vomiting. Patient had a normal blood sugar with EMS. Patient was hypertensive with a systolic of 190 with EMS. Patient's vital signs were otherwise unremarkable. They stated that patient was unable to follow commands with them they were unable to fully complete stroke scale. Patient's last known normal was 2 PM. Further discussion with the patient, he states that he is having abdominal pain. Patient states that he he drank a few beers earlier today. Patient states that he does not do any drugs. Patient reports abdominal pain and a headache states that he had 1 episode of vomiting. Patient denies chest pain or shortness of breath. Patient denies any vision changes. Patient denies any numbness or weakness. Related Data Home Medications ?Medication ?Instructions ?Recorded ?Confirmed fluticasone furoate 200 1 ea inhalation DAILY COPD 08/18/22 08/18/22 mcg-vilanterol 25 mcg/dose inhalation powder (Breo Ellipta) Previous Rx's ?Medication ?Instructions ?Recorded ipratropium 20 mcg-albuterol 100 2 puff inhalation QIDRT 30 days #0 08/20/22 mcg/actuation mist for inhalation grams (Combivent Respimat) levofloxacin 750 mg tablet 750 mg PO 1100 5 days #5 tabs 08/20/22 losartan 50 mg tablet 25 mg (1/2 x 50 mg) PO DAILY High 08/20/22 blood pressure 30 days #0 tabs prednisone 20 mg tablet 40 mg (2 x 20 mg) PO DAILY 3 days 08/20/22 #6 tabs Allergies Allergy/AdvReac Type Severity Reaction Status Date / Time lisinopril Allergy Swelling Verified 03/26/25 00:11 of the Eye [facility] Disclaimer: The information contained in this section may have been updated after the patient was seen, as this information can be updated by other users. Medical History (Updated 08/24/22 @ 00:00 by Lydia Cleveland) Tobacco dependence Alcohol use disorder TIA (transient ischemic attack) COPD (chronic obstructive pulmonary disease) Surgical History (Updated 08/18/22 @ 02:32 by Libertad Velazco RN) H/O cardiac catheterization Social History (Updated 08/18/22 @ 04:12 by Micheline Bautista RN) Smoking Status: Unknown if ever smoked alcohol intake: current current occupational status: employed Travel in the last 8 weeks?: None Have you lived/traveled outside US in past 30 days?: No Contact w/someone who lives/traveled outside US past 30 days?: No Exposure to someone with infectious disease in past 14 days?: No Do you have a fever (greater than 100.4 F or 38 C)?: No Have you tested positive for COVID-19?: No Exposed to someone with COVID-19 in past 14 days?: No Do you have a sore throat?: No Do you have a cough?: No Do you have any weakness?: No Do you have any diarrhea?: No Are you experiencing any unusual bleeding?: No Do you have any muscle aches/pain?: No Do you have any abdominal pain?: No Are you experiencing loss of taste or smell?: No Other Medical History Have you received the Flu Vaccine for this season: No Have you received the Pneumonia Vaccine: No ROS Obtained: Yes All systems reviewed & no additional complaints except as documented and Yes Systems reviewed as appropriate & no additional complaints except as documented Physical Exam General General appearance: alert and in no apparent distress Head Head exam: atraumatic, normocephalic and normal inspection Eye Eye exam: Present normal appearance, PERRL and EOMI; Absent scleral icterus ENT ENT exam: Present normal exam and normal external ear exam Neck Neck exam: Present normal inspection and full ROM Chest Chest inspection: Present normal inspection and symmetric chest wall rise Respiratory Respiratory exam: Present normal lung sounds bilaterally; Absent respiratory distress or wheezes Cardiovascular Cardiovascular exam: Present regular rate, normal rhythm and normal heart sounds Abdominal Exam Abdominal exam: Present soft, distention and tenderness (LLQ tenderness); Absent guarding or rebound Extremities Exam Extremities exam: Present normal inspection and full ROM Back Exam Back exam: Present normal inspection and full ROM Neurological Exam Neurological exam: Present alert and other (Alert and oriented x 1, 5 out of 5 strength of bilateral upper extremities and bilateral lower extremities, sensation intact x 4 extremities, cranial nerves II through XII intact, no dysarthria however patient was having inappropriate response to words. NIH 4. Unable to complete [id number]) Psychiatric Psychiatric exam: Present normal affect and normal mood Skin Skin exam: Present warm and dry Medical Decision Making Medical Records Medical records reviewed: Yes I reviewed the patient's medical records. Screening: Per USPSTF and CDC recommendations, given the prevalence of disease in our region, it is our hospital?s policy to screen for HIV and viral Hepatitis for all patients aged 18 and over and those with ongoing risk factors. Brayan Inquiry Pt receiving controlled substance: No Vital Signs: 03/25/25 21:58 Temperature 98.5 F Temperature Source Oral Pulse Rate [Apical] 77 Respiratory Rate 19 Blood Pressure [Right Arm] 135/87 Blood Pressure Mean [Right Arm] 103 Blood Pressure Source [Right Arm] Manual Cuff/ Auscultation Blood Pressure Position [Right Arm] Sitting 02 Sat by Pulse Oximetry 98 Oxygen Delivery Method Room Air Lab Data Lab results reviewed: Yes I reviewed the patient's lab results. Lab Results 03/25/25 21:00: WBC 15.1 H, RBC 5.55, Hgb 16.2, Hct 49.5, MCV 89.2, MCH 29.2, MCHC 32.7, RDW 13.0, Plt Count 438 H, MPV 9.3, Neut % (Auto) 81.8 H, Lymph % (Auto) 12.7, [place] % (Auto) 3.8, Eos % (Auto) 0.7, Baso % (Auto) 0.5, Neut # (Auto) 12.4 H, Lymph # (Auto) 1.9, [place] # (Auto) 0.6, Eos # (Auto) 0.1, Baso # (Auto) 0.1, Sodium 136, Potassium 4.4, Chloride 99, Carbon Dioxide 25, Anion Gap 16.4 H, BUN 21 H, Creatinine 0.80, Estimated GFR 97, Est GFR ( Amer) 117, Glucose 107 H, Calcium 9.5, Total Bilirubin 1.1, AST 39, ALT 15, Alkaline Phosphatase 75, Troponin I < 0.01, Total Protein 8.6 H D, Albumin 4.9, Globulin 3.7 H, Albumin/Globulin Ratio 1.3, Triglycerides 85, Cholesterol 168, LDL Cholesterol Direct 69.59 L, VLDL Cholesterol 17, HDL Cholesterol 65 H, Cholesterol/HDL Ratio 2.6, Lipase 103, Salicylates < 1.0 L, Acetaminophen < 10 L, Plasma/Serum Alcohol < 10 03/25/25 21:51: PT 11.1, INR 1.00, APTT 26.2, VBG pH 7.31, VBG pCO2 51.4 H, VBG pO2 31.8, VBG HCO3 25.0, VBG Total CO2 26.6, VBG O2 Saturation 59.4, VBG Base Excess -1.3, VBG Lactic Acid 1.5 03/25/25 22:15: Urine Color Yellow, Urine Appearance Clear, Urine pH 6.0, Ur Specific [place] <= 1.005, Urine Protein Negative, Urine Glucose (UA) Negative, Urine Ketones 1+, Urine Blood Trace-i, Urine Nitrate Positive A, Urine Bilirubin Negative, Urine Urobilinogen 1.0, Ur Leukocyte Esterase Trace, Urine RBC None, Urine WBC 5-10, Ur Squamous Epith Cells 3-5, Urine Bacteria 2+, Urine Opiates Screen Negative, Urine Methadone Screen Negative, Ur Barbituates Screen Negative, Ur Phencyclidine Scrn Negative, Ur Amphetamines Screen Negative, U Benzodiazepines Scrn Negative, Urine Cocaine Screen Negative, U Marijuana (THC) Screen Negative 03/25/25 21:00 03/25/25 21:00 Orders (Tests/Meds): ED MEDICATIONS Generic Name Dose Route Start Last Admin Trade Name Freq PRN Reason Stop Dose Admin Ceftriaxone Sodium 2 gm/ 100 mls @ 200 mls/hr 03/25/25 23:15 03/26/25 00:17 Sodium Chloride IV 04/04/25 23:14 200 mls/hr Q24H WENCESLAO Administration Sodium Chloride 10 ml 03/25/25 21:21 Sodium Chloride 0.9% 10ml Flush Syringe IV 04/24/25 21:20 NEEDED PRN Maintain IV Site Discontinued Medications Generic Name Dose Route Start Last Admin Trade Name Freq PRN Reason Stop Dose Admin Iopamidol 80 ml 03/25/25 21:32 03/25/25 21:33 Iopamidol-370 (76%);100ml Bottle IV 03/25/25 21:33 80 ml ONCE ONE Administration Iopamidol 80 ml 03/25/25 22:27 03/25/25 22:28 Iopamidol-370 (76%);100ml Bottle IV 03/25/25 22:28 80 ml ONCE ONE Administration Ondansetron HCl 4 mg 03/25/25 21:50 03/25/25 22:10 Ondansetron 4mg/2ml Vial IV 03/25/25 21:51 4 mg ONCE ONE Administration Sodium Chloride 50 ml 03/25/25 21:32 03/25/25 21:33 0.9 % Sodium Chloride 50 Ml Vial IV 03/25/25 21:33 50 ml ONCE ONE Administration Sodium Chloride 10 ml 03/25/25 21:32 03/25/25 21:33 Sodium Chloride 0.9% 10ml Syr (Rad Only) IV 03/25/25 21:33 10 ml ONCE ONE Administration Sodium Chloride 50 ml 03/25/25 22:27 03/25/25 22:28 0.9 % Sodium Chloride 50 Ml Vial IV 03/25/25 22:28 50 ml ONCE ONE Administration Sodium Chloride 10 ml 03/25/25 22:27 03/25/25 22:28 Sodium Chloride 0.9% 10ml Syr (Rad Only) IV 03/25/25 22:28 10 ml ONCE ONE Administration ORDERS Category Date Time Status CT abdomen pelvis w con Stat Cat Scan 03/25/25 21:[address] angio chest PE protocol Stat Cat Scan 03/25/25 21:[address] angio head Stat Cat Scan 03/25/25 21:[address] angio neck Stat Cat Scan 03/25/25 21:[address] head/brain wo con Stat Cat Scan 03/25/25 21:21 Completed Acetaminophen Stat Lab 03/25/25 21:00 Completed Activated Partial Thrombo Time Stat Lab 03/25/25 21:51 Completed Complete Blood Count Auto Diff Stat Lab 03/25/25 21:00 Completed Comprehensive Metabolic Panel Stat Lab 03/25/25 21:00 Completed Drug Screen,Urine Stat Lab 03/25/25 22:15 Completed Ethyl Alcohol Stat Lab 03/25/25 21:00 Completed Lipase Stat Lab 03/25/25 21:00 Completed Lipid Panel Stat Lab 03/25/25 21:00 Completed Prothrombin Time INR Stat Lab 03/25/25 21:51 Completed Salicylate Stat Lab 03/25/25 21:00 Completed Troponin I Q3H Lab 03/26/25 00:30 Ordered Troponin I Q3H Lab 03/26/25 03:30 Ordered Troponin I Stat Lab 03/25/25 21:00 Completed Urinalysis and Microscopic Stat Lab 03/25/25 22:15 Completed Urine Culture Stat Micro 03/25/25 22:15 Received Venous Blood Gas Stat RT 03/25/25 21:51 Completed ECG Request Stat Y 03/25/25 21:21 Ordered Medical Decision Narrative: Patient is an otherwise healthy 65-year-old male who presented to the emergency department as a stroke alert. On arrival, patient was mildly hypertensive but vital signs were otherwise unremarkable. Blood sugar was normal with EMS. Differential includes but not limited to: Intracranial mass, intracranial hemorrhage, intracranial ischemia, electrolyte abnormalities, pneumonia, urinary tract infection, intrathoracic pathology, intra-abdominal pathology, amongst others. Patient's labs were reviewed and interpreted by myself: CBC showed no leukocytosis, hemoglobin was stable. CMP was unremarkable. INR was 1. VBG was unremarkable. UA was nitrite +2+ bacteria. Urine drug screen was negative. Alcohol level was normal. Tylenol level and salicylate normal. CT head, CTA head and neck reviewed and interpreted by myself and showed no acute pathology and per radiology were normal and showed no large vessel occlusion. CT PE was reviewed and interpreted by myself and showed no acute pathology. CT abdomen pelvis was reviewed and interpreted by myself and showed no acute pathology, per radiology there was possibly a right femoral DVT. Patient's EKG was reviewed and interpreted by myself and showed normal sinus rhythm without acute ST or T wave changes concerning for ischemia Patient was given a gram of Rocephin for his urinary tract infection. Patient's NIH on arrival was 4, patient's last known normal was 2 PM, he was outside the window for TNK. Patient did not have a large vessel occlusion. Patient's exam continued to be abnormal patient had inappropriate response with words. I felt the patient warranted further stroke workup. I consulted with [facility] and they excepted patient for transfer. Patient was accepted for ED to admission by Dr. Godoy. Critical Care Critical Care Time Critical Care Time: No
--- OUTSIDE RECORDS SUMMARY | 2025-03-25 22:36 | XMS_ITS | Clinical Summary ---
Author Organization [facility] Address [address] [place] [address] Care Team Providers Care Yard Stocker Name Role Phone Aleena Hamilton Primary Care Provider [phone] Allergies Active Allergy Reactions Criticality Noted Date Comments Lisinopril Swelling 02/19/2018 Medications albuterol (PROVENTIL HFA;VENTOLIN HFA) 108 (90 Base) MCG/ACT inhaler Inhale 2 puffs Every 4 (Four) Hours As Needed for Wheezing. Active Fluticasone Furoate-Vilanter ol (BREO ELLIPTA) 100-25 MCG/INH aerosol powder Inhale 1 puff Daily. Active PHARMACY MEDS TO BED CONSULT Daily. 1 each 02/21/2018 Active aspirin 325 MG tablet Take 1 tablet by mouth Daily. 30 tablet 1 02/22/2018 Active atorvastatin (LIPITOR) 80 MG tablet Take 1 tablet by mouth Every Night. 30 tablet 1 02/22/2018 Active hydrochlorothiaz ashley (HYDRODIURIL) 12.5 MG tablet Take 1 tablet by mouth Daily. 30 tablet 1 02/22/2018 Active losartan (COZAAR) 50 MG tablet Take 1 tablet by mouth Daily. 30 tablet 1 02/22/2018 Active Active Problems Problem Noted Date Diagnosed Date Acute CVA (cerebrovascular accident) 02/19/2018 Hypertension 02/19/2018 COPD (chronic obstructive pulmonary disease) Noncompliance 02/19/2018 ETOH abuse 02/19/2018 Family History Medical History Relation Name Comments Diabetes Brother Alcohol abuse Father Coronary artery disease Father Hyperlipidemia Father Hypertension Father Deep vein thrombosis Mother Pulmonary embolism Mother No Known Problems Sister 1 Coronary artery disease Sister 2 Diabetes Sister 2 Relation Name Status Comments Brother (Age 46) Father (Age 78) Mother (Age 52) Sister 1 Alive Sister 2 Alive Social History Tobacco Use Types Packs/Day Years Used Date Smoking Tobacco: Some Days Smokeless Tobacco: Never Tobacco Cessation:Ready to Q uit: No; Counseling Given: Yes Comments:2-3 ppd Alcohol Use Standard Drinks/Week Comments Yes 0 (1 standard drink = 0.6 oz pur e alcohol) 6-8/day, last drink 02/17/18 Abuse Screen Answer Date Recorded Unsafe at Home or Work/School Not on file Feels Threatened by Someone? Not on file 03/2023 Does Anyone Keep You from Co ntacting Others or Doint Things Outside the Home? Not on file 04/09/2023 Physical Sign of Abuse Present Not on file 1 Housing Stability Answer Date Recorded Current Living Arrangements Not on file 03/2023 Potentially Unsafe Housing Conditions Not on andie e 04/09/2023 Family and Community Support Answer Tan e Recorded Help with Day-to-Day Activities Not on file 04/09/2023 Lonely or Isolated Not on file 04/09/2023 Employment Answer Date Recorded Do you want help finding or keeping work or a allison b? Not on file 04/09/2023 Disabilities Answer Date Recorded Concentrating, Remembering, or Making Decisions Difficulty Not on file 04/09/2023 Doing Errands Independently Difficulty Not on fi le 04/09/2023 Education Answer Date Recorded Help with school or training? Not on file Preferred Language Not on file 04/09/2023 Sex and Gender Information Value Date Recorded Sex Assigned at Not on file Legal Sex Male 11:24 AM EDT Gender Identity Not on file Sexual Orientation Not on file Last Filed Vital Signs Vital Sign Reading Time Taken Comments Blood Pressure 165/78 02/21/2018 7:55 AM EDT Pulse 57 02/21/2018 8:37 AM EDT Temperature 36.6 C (97.8 F) 02/21/2018 7:55 AM EDT Respiratory Rate 18 02/21/2018 7:55 AM EDT Oxygen Saturation 94% 02/21/2018 3:35 AM EDT Inhaled Oxygen Concentration - - Weight 88 kg (194 lb) 02/20/2018 2:15 PM EDT Height 170.2 cm (5' 7.01 ) 02/20/2018 2:15 PM ED T Body Mass Index 30.38 02/20/2018 2:15 PM EDT Plan of Treatment Health Maintenance Due Date Last Done Comments TDAP/TD VACCINES (1 - Tdap) 01/04/1979 COLOGUARD 01/04/2005 COLON CANCER SCREENING 5 YEAR SIGMOIDOSCOPY 01/04/2005 COLONOSCOPY 01/04/2005 COLORECTAL CANCER SCREENING 01/04/2005 CT COLONOGRAPHY 01/04/2005 FECAL OCCULT BLOOD TEST 01/04/2005 FIT Testing (1 year) 01/04/2005 Pneumococcal Vaccine 50+ (1 of 1 - PCV) 01/04/2010 ZOSTER VACCINE (1 of 2) 01/04/2010 ANNUAL PHYSICAL 02/22/2018 HEPATITIS C SCREENING 02/22/2018 AAA SCREEN ONCE 01/04/2025 INFLUENZA VACCINE 01/30/2025 COVID-19 Vaccine ( season) 2025 Insurance MEDICARE ADVANTAGE Advance Directives * No CPR (Do Not Attempt to Resuscitate) (Latest Code Status on File) Date Activated Date Inactivated Comments 02/19/2018 6:27 PM 02/21/2018 2:51 PM Question Answer Comments Code Status (Patient has no pulse and is not breathing): No CPR (Do Not Attempt to Resuscitate) Medical Interventions (Patie nt has pulse or is breathing): Limited Medical Intervention Limits: Intubation Level Of Support Discussed With: Patient Care Teams Yard Stocker Relationship Specialty Start Date End Date Aleena Hamilton DO [address] [place] [id number] PCP - General Family Medicine 02/19/18
[2025-03-25 22:37] LABS: Lipase 103 U/L (23-300)
[2025-03-25 22:37] LABS: Bilirubin,Urine Negative (Negative); Color,Urine YELLOW (Yellow); Glucose,Urine (UA) Negative (Negative); Ketones,Urine 1+ (Negative); Leukocyte Esterase,Urine TRACE (Negative); PH,Urine 6.0 (5.0-8.5); Protein,Urine Negative (Negative); Specific Gravity, Urine <= 1.005 (1.005-1.030); Urobilinogen,Urine 1.0 EU/dl (0.2)
[2025-03-25 22:39] LABS: Acetaminophen < 10 ug/ml (10-30); Salicylate < 1.0 mg/dL (2.0-20.0)
[2025-03-25 22:47] LABS: Lactate Venous 1.5 mmol/L (0.4-2.0); VBG HCO3 25.0 mmol/L (23-30); VBG PCO2 51.4 mmol/L (35-51); VBG PH 7.31 mmol/L (7.31-7.41); VBG PO2 31.8 mmol/L (28-40)
[2025-03-25 22:50] VITALS: BP 106/84; PULSE 83; RESP 19; O2SAT 94
[2025-03-25 22:50] LABS: Opiate Screen,Urine Negative ng/ml (<300); Phencyclidine Screen,Urine Negative ng/ml (<25)
[2025-03-25 22:51] LABS: Amphetamine/Metha Screen,Urine Negative ng/ml (<1000)
[2025-03-25 22:52] LABS: Barbiturates Screen,Urine Negative ng/ml (<200)
[2025-03-25 22:53] LABS: Benzodiazepines Screen,Urine Negative ng/ml (<200)
[2025-03-25 22:55] LABS: Methadone Screen,Urine Negative ng/ml (<300)
[2025-03-25 23:00] VITALS: BP 115/94; PULSE 87; RESP 22; O2SAT 96
[2025-03-25 23:10] LABS: Bacteria,Urine 2+ /lpf
[2025-03-25 23:30] VITALS: BP 120/81; PULSE 74; RESP 19; O2SAT 94
[2025-03-26 00:03] VITALS: BP 153/102; PULSE 90; RESP 20; O2SAT 95
[2025-03-26 00:05] VITALS: BP 122/87; PULSE 90; RESP 19; O2SAT 93
--- NOTE | 2025-03-26 00:27 | PC.NURSE ---
report called to Mamie TIDWELL at [facility]
[2025-03-26 00:31] VITALS: BP 102/73; PULSE 92; RESP 19; O2SAT 98
[2025-03-26 01:33] VITALS: BP 120/89; PULSE 91; RESP 19; TEMP 36.9; O2SAT 98
--- NOTE | 2025-03-28 08:35 | PC.NURSE ---
Final urine culture faxed to [facility] as the pt was transferred there.
== END 2025-03-26 01:37 | disposition other institution (70) ==
PROVIDERS: Emergency Provider Student in an Organized Health Care Education/Training Program; PCP Nurse Practitioner Family
DX: N39.0 Urinary tract infection, site not specified (principal); R10.814 Left lower quadrant abdominal tenderness; R47.89 Other speech disturbances; R51.9 Headache, unspecified; R11.2 Nausea with vomiting, unspecified; J44.9 Chronic obstructive pulmonary disease, unspecified; I10 Essential (primary) hypertension; Z87.891 Personal history of nicotine dependence
CPT/HCPCS: 70450; 70496; 70498; 71275; 74177; 80053; 80061; 80307; 80320; 80329; 81001; 82803; 83690; 84484; 85025; 85610; 85730; 87086; 87088; 87186; 93005; 96365; 96375; 99285; J0696; J2405; Q9967